=== PATIENT | male | born 1955 | race Caucasian/White ===

== ENCOUNTER 2017-11-17 09:35 | Emergency (ER) | payer OTHER ==
[~2017-11-17] VITALS: Ht 172.7 cm; Wt 84.4 kg
--- NOTE | ~2017-11-17 | EKG ---
[address] [address] [place] [address] ELECTROCARDIOGRAM REPORT Name: HANNAH BRANNON [id number] Admission: 11/17/17 Attend Phys: Discharge: 11/17/17 Date of : 55 Report #: [id number] THIS REPORT FOR: //name// [facility] ED Test Date: 2017-11-17 Test Time: 10:11:30 Pat Name: HANNAH BRANNON Department: Room: Gender: [employer]: aj : 1955 Requested By: Stanley Noriega Order Number: [id number] MD: Charbel Simeon Measurements Intervals [place] Rate: 95 P: 79 MT: 143 QRS: 62 QRSD: 87 T: 15 QT: 355 QTc: 447 Interpretive Statements Sinus rhythm Minimal ST depression, diffuse leads Compared to ECG 06/13/2007 02:25:12 ST (T wave) deviation now present Electronically Signed On 11-18-2017 12:15:24 CDT by Charbel Simeon [email or web address] <ELECTRONICALLY SIGNED> By: Charbel Simeon MD, [facility] 11/18/17 1215 [id number] 101 Charbel Simeon MD, FACC /EPI
[2017-11-17 09:59] LABS: ABSOLUTE NEUTROPHILS 3.1 thou/uL (1.4-8.2); BASOPHILS 0.8 % (0.0-2.0); HEMATOCRIT 44.6 % (42.0-52.0); HEMOGLOBIN 15.4 gm/dL (14.0-18.0); LYMPHOCYTES 36.6 % (24.0-44.0); MCH 30.9 pg (26.0-34.0); MCHC 34.5 g/dL (28.0-37.0); MCV 89.6 fL (80.0-100.0); MONOCYTES 9.1 % (1.0-8.0); PLATELET COUNT 198 thou/uL (150-400); POLYS 52.5 % (36.0-66.0); RBC 4.98 mil/uL (4.50-6.00); RDW 13.3 % (10.5-14.5); WBC 5.9 thou/uL (4.0-11.0)
[2017-11-17 10:04] LABS: ANION GAP 9 mmol/L (7-16); BUN 21 mg/dL (7-18); CALCIUM 9.8 mg/dL (8.5-10.1); CHLORIDE 107 mmol/L (98-107); CO2 24 mmol/L (21-32); CREATININE 0.9 mg/dL (0.7-1.3); GLUCOSE 107 mg/dL (74-106); SODIUM 140 mmol/L (136-145)
[2017-11-17 10:13] LABS: TROPONIN-I < 0.04 ng/mL (<0.06)
[2017-11-17] MEDS ORDERED: QVAR8.7 G1 INH (10:17)
[2017-11-17] MEDS ORDERED: JOINT HEALTH T1 EACH PO (10:18)
[2017-11-17] MEDS ORDERED: CENTRUM SILVER1 EAC4 PO (10:18)
[2017-11-17] MEDS ORDERED: CLARITIN10 MG PO (10:19)
[2017-11-17] MEDS ORDERED: ASPIRIN81 M2 PO (10:19)
[2017-11-17] MEDS ORDERED: NASALCROM26 ML INH (10:23)
[2017-11-17] MEDS ORDERED: MEDROLDOSEPACK PO (11:18)
[2017-11-17 11:52] VITALS: BP 131/66
== END 2017-11-17 11:53 | disposition home or self-care (01) ==
LOC: ER 09:35
PROVIDERS: Physician Assistant
DX: J45.901 Unspecified asthma with (acute) exacerbation (principal); Z88.0 Allergy status to penicillin